=== PATIENT | female | born 1980 | race Caucasian/White ===

== ENCOUNTER → 2020-04-13 | Outpatient (CLI) | payer OTHER ==
--- NOTE | 2020-04-13 16:53 | US ---
EXAMINATION TYPE: US transvaginal DATE OF EXAM: 04/13/2020 COMPARISON: None. CLINICAL HISTORY: L680 HIRSUTISM,[id number] OBESITY DUE TO EXCESS CALORIES. abnormal hormone levels per isaías davis TECHNIQUE: Transvaginal (TV). Date of LMP: 03/24/2020, G0 EXAM MEASUREMENTS: Uterus: 8.4 x 3.8 x 3.8 cm Endometrial Stripe: 0.6 cm Right Ovary: 3.5 x 2.3 x 2.4 cm 1. Uterus: Anteverted Heterogenous 2. Endometrium: wnl 3. Right Ovary: follicles seen 4. Left Ovary: Obscured by overlying bowel gas 5. Bilateral Adnexa: wnl 6. Posterior cul-de-sac: no free fluid Heterogeneous uterus. Endometrial stripe not suspiciously thickened. No free fluid. Last few images s how tiny nabothian cysts in cervix. Right ovary seen. Left ovary obscured by overlying bowel gas. No adnexal masses noted. IMPRESSION: Right ovary appears within normal limits. Left ovary not successfully visualized. No adne xal masses noted.
== END | disposition home or self-care (01) ==
LOC: RADUSWWP 15:31
PROVIDERS: ATTEND Family Medicine
DX: L68.0 Hirsutism (principal); E66.09 Other obesity due to excess calories
CPT/HCPCS: 76830

== ENCOUNTER → 2021-12-24 | Outpatient (CLI) | payer BC ==
--- NOTE | 2021-12-27 11:45 | MM ---
Reason for Exam: Screening (asymptomatic). Baseline mammogram. Patient History: Menarche at age 14. Premenopausal. Patient used Hormonal Contraceptives for 15 years. Maternal aunt (NEDRA) had breast cancer, age 42. Last menstrual period: 12/23/2021 Risk Values: Edita 5 year model risk: 0.4%. NCI Lifetime model risk: 7.3%. Prior Study Comparison: Patient's first Mammogram. Tissue Density: There are scattered fibroglandular densities. Findings: Analyzed By CAD. There is no suspicious group of microcalcifications or new suspicious mass in either breast. Overall Assessment: Negative, BI-RAD 1 Management: Screening Mammogram of both breasts in 1 year. A clinical breast exam by your physician is recommended on an annual basis and results should be correlated with mammographic findings. Electronically signed and approved by: Allen Bianchi M.D. Radiologis
== END | disposition home or self-care (01) ==
LOC: RADMAMWWP 15:59
PROVIDERS: ATTEND Family Medicine
DX: Z12.31 Encounter for screening mammogram for malignant neoplasm of breast (principal)
CPT/HCPCS: 77067

== ENCOUNTER → 2022-05-18 | Outpatient (CLI) | payer BC ==
[2022-05-18 16:33] LABS: T4, Free (Free Thyroxine) 1.07 ng/dL (0.800-1.800)
== END | disposition home or self-care (01) ==
LOC: LABWHC1 10:29
PROVIDERS: ATTEND Internal Medicine Endocrinology, Diabetes & Metabolism
DX: L68.0 Hirsutism (principal)
CPT/HCPCS: 36415; 84439; 84443; 84480

== ENCOUNTER → 2022-05-18 | Outpatient (CLI) | payer BC ==
--- NOTE | 2022-05-19 12:29 | NM ---
EXAMINATION TYPE: NM thyroid image w uptake DATE OF EXAM: 05/19/2022 COMPARISON: NONE HISTORY: Thyrotoxicosis TECHNIQUE: Thyroid iodine uptake is calculated and images performed after the oral administration of 301 uCi 1-123 Capsule. FINDINGS: There is normal distribution of activity throughout the gland. The 4 hour iodine uptake is calculated at 11.0% (normal range 8-14%). The 24-hour iodine uptake is calculated at 23.7% (normal r bashir 15-35%). There is a photopenic defect in the superior pole right lobe thyroid. A lateral posterior right thyro id lobe photopenic defect may be present. There is diminished radiotracer inferior pole right lobe th yroid. Left lobe thyroid is somewhat heterogenous. Correlation with ultrasound is recommended. IMPRESSION: 1. Normal thyroid uptake. 2. Heterogenous appearance with scattered photopenic defects and irregular patchy signal to the thyro id. Correlation with ultrasound thyroid is recommended
== END | disposition home or self-care (01) ==
LOC: RADNMMAIN 09:45
PROVIDERS: ATTEND Internal Medicine Endocrinology, Diabetes & Metabolism
DX: E05.90 Thyrotoxicosis, unspecified without thyrotoxic crisis or storm (principal)
CPT/HCPCS: 78014; A9516